=== PATIENT | female | born 1955 | race Two or more races ===

== ENCOUNTER 2021-03-11 10:14 | Inpatient (IN) | payer OTHER ==
[2021-03-11] MEDS ORDERED: SODIUM CHLORIDE 1,000 ML IV SCH (10:30)
[2021-03-11 10:50] VITALS: BMI 24.0
[2021-03-11] MEDS ORDERED: LORazepam 2 MG/ML SDV VIAL IVPUSH ONE (10:50)
[2021-03-11] MEDS ORDERED: LORazepam 2 MG/ML SDV VIAL ONE (10:50)
[2021-03-11 11:15] LABS: PH,URINE 5.5 (5.0-8.0); URINE APPEARANCE CLEAR; URINE BILIRUBIN NEGATIVE (NEGATIVE); URINE COLOR YELLOW; URINE GLUCOSE (UA) NEGATIVE (NEGATIVE); URINE KETONE NEGATIVE (NEGATIVE); URINE LEUK ESTERASE NEGATIVE (NEGATIVE); URINE NITRITE NEGATIVE (NEGATIVE); URINE PROTEIN NEGATIVE (NEGATIVE); URINE UROBILINOGEN 0.2 mg/dL (0.2-1.0)
[2021-03-11 11:47] LABS: BASO % 0.2 % (0-2.0); EOS % 0.4 % (0-4.5); HEMATOCRIT 37.9 % (32.4-45.2); HEMOGLOBIN 12.6 GM/dL (10.7-15.3); LYMPH % 9.8 % (8-40); MCH 27.8 pg (25.7-33.7); MCHC 33.1 g/dl (32.0-36.0); MEAN CELL VOLUME 84.1 fl (80-96); MEAN PLT VOLUME 8.7 fl (7.5-11.1); MONO % 7.4 % (3.8-10.2); NEUT % 82.2 % (42.8-82.8); PLATELET COUNT 236 K/MM3 (134-434); RBC 4.51 M/mm3 (3.60-5.2); RDW 13.7 % (11.6-15.6); WHITE BLOOD COUNT 12.4 K/mm3 (4.0-10.0)
[2021-03-11 11:53] LABS: INR 0.96 (0.83-1.09); PROTHROMBIN TIME (PATIENT) 11.8 SEC (9.7-13.0)
[2021-03-11 11:55] LABS: ACTIVATED PTT 24.7 SECONDS (25.2-36.5)
[2021-03-11 11:57] LABS: CHLORIDE 109 mmol/L (98-107); SODIUM 140 mmol/L (136-145)
[2021-03-11 12:00] LABS: ALBUMIN 3.2 g/dl (3.4-5.0); CALCIUM 8.8 mg/dL (8.5-10.1)
[2021-03-11 12:01] LABS: ANION GAP 8 MMOL/L (8-16); BLOOD UREA NITROGEN 12.9 mg/dL (7-18); CO2 23 mmol/L (21-32); GLUCOSE,RANDOM 87 mg/dL (74-106)
[2021-03-11 12:03] LABS: CHOLESTEROL 193 mg/dL (50-200); SGOT/AST 23 U/L (15-37); SGPT/ALT 22 U/L (13-61)
[2021-03-11 12:04] LABS: CREATININE 0.8 mg/dL (0.55-1.3); TRIGLYCERIDES 271 mg/dL (0-150)
[2021-03-11 12:05] LABS: BILIRUBIN,TOTAL 0.2 mg/dL (0.2-1); LDL CHOLESTEROL (ONLY SJRH) 118 mg/dL (5-100); TOT PROT 6.7 g/dl (6.4-8.2)
[2021-03-11 12:06] LABS: ALK PHOS 75 U/L (45-117); HDL CHOLESTEROL 39 mg/dL (40-60)
[2021-03-11 12:24] LABS: LACTIC ACID 2.1 mmol/L (0.4-2.0)
[2021-03-11] MEDS ORDERED: levETIRAcetam 500 MG/5 ML INJECTION VIAL IVPB ONE ×2 (14:35→15:06)
[2021-03-11] MEDS: D5-1/2NS+10 MEQ KCL - 10 MEQ/1,000 ML INFUS.BAG IV SCH (16:54)
[2021-03-11] MEDS ORDERED: LORazepam 2 MG/ML SDV VIAL IVPUSH PRN (17:07)
[2021-03-11] MEDS: levETIRAcetam 500 MG/5 ML INJECTION VIAL IVPB SCH (21:28)
[2021-03-11] MEDS: ATORVASTATIN CA 40 MG TABLET (FP) PO SCH (21:29)
[2021-03-11] MEDS ORDERED: levETIRAcetam 500 MG/5 ML INJECTION VIAL IVPB SCH (22:00)
[2021-03-12] MEDS: levETIRAcetam 500 MG/5 ML INJECTION VIAL IVPB SCH ×2 (09:18→21:19)
[2021-03-12] MEDS: ENOXAPARIN NA (PORCINE) 40 MG/0.4 ML DISP.SYRIN SQ SCH (09:19)
[2021-03-12 11:43] LABS: BASO % 0.5 % (0-2.0); EOS % 1.5 % (0-4.5); HEMATOCRIT 40.4 % (32.4-45.2); HEMOGLOBIN 13.5 GM/dL (10.7-15.3); LYMPH % 27.3 % (8-40); MCH 28.3 pg (25.7-33.7); MCHC 33.5 g/dl (32.0-36.0); MEAN CELL VOLUME 84.5 fl (80-96); MEAN PLT VOLUME 9.4 fl (7.5-11.1); MONO % 6.5 % (3.8-10.2); NEUT % 64.2 % (42.8-82.8); PLATELET COUNT 234 K/MM3 (134-434); RBC 4.78 M/mm3 (3.60-5.2); RDW 13.7 % (11.6-15.6); WHITE BLOOD COUNT 7.6 K/mm3 (4.0-10.0)
[2021-03-12 12:08] LABS: ALBUMIN 3.3 g/dl (3.4-5.0); BLOOD UREA NITROGEN 11.6 mg/dL (7-18); CALCIUM 9.4 mg/dL (8.5-10.1)
[2021-03-12 12:11] LABS: CREATININE 0.7 mg/dL (0.55-1.3)
[2021-03-12 12:12] LABS: PHOSPHOROUS 3.4 mg/dL (2.5-4.9)
[2021-03-12 12:13] LABS: BILIRUBIN,TOTAL 0.5 mg/dL (0.2-1); TOT PROT 7.1 g/dl (6.4-8.2)
[2021-03-12] MEDS: D5-1/2NS+10 MEQ KCL - 10 MEQ/1,000 ML INFUS.BAG IV SCH (20:00)
[2021-03-12] MEDS: ATORVASTATIN CA 40 MG TABLET (FP) PO SCH (21:28)
[2021-03-13 08:54] LABS: ALBUMIN 3.2 g/dl (3.4-5.0); BLOOD UREA NITROGEN 10.7 mg/dL (7-18); CALCIUM 9.1 mg/dL (8.5-10.1); MAGNESIUM 2.4 mg/dL (1.8-2.4)
[2021-03-13 08:58] LABS: CREATININE 0.7 mg/dL (0.55-1.3); PHOSPHOROUS 3.1 mg/dL (2.5-4.9)
[2021-03-13 08:59] LABS: BILIRUBIN,TOTAL 0.6 mg/dL (0.2-1)
[2021-03-13] MEDS: levETIRAcetam 500 MG/5 ML INJECTION VIAL IVPB SCH ×2 (09:55→21:30)
[2021-03-13] MEDS: ENOXAPARIN NA (PORCINE) 40 MG/0.4 ML DISP.SYRIN SQ SCH (10:14)
[2021-03-13] MEDS: D5-1/2NS+10 MEQ KCL - 10 MEQ/1,000 ML INFUS.BAG IV SCH (21:30)
[2021-03-13] MEDS: ATORVASTATIN CA 40 MG TABLET (FP) PO SCH (21:30)
[2021-03-14] MEDS: D5-1/2NS+10 MEQ KCL - 10 MEQ/1,000 ML INFUS.BAG IV SCH (06:54)
[2021-03-14 08:18] LABS: BASO % 0.5 % (0-2.0); EOS % 2.6 % (0-4.5); HEMATOCRIT 39.1 % (32.4-45.2); LYMPH % 26.9 % (8-40); MCH 28.1 pg (25.7-33.7); MCHC 33.2 g/dl (32.0-36.0); MEAN CELL VOLUME 84.6 fl (80-96); MONO % 10.2 % (3.8-10.2); NEUT % 59.8 % (42.8-82.8); PLATELET COUNT 232 K/MM3 (134-434); RBC 4.62 M/mm3 (3.60-5.2); RDW 13.4 % (11.6-15.6); WHITE BLOOD COUNT 9.3 K/mm3 (4.0-10.0)
[2021-03-14 08:44] LABS: ALBUMIN 3.2 g/dl (3.4-5.0)
[2021-03-14 08:45] LABS: BLOOD UREA NITROGEN 11.4 mg/dL (7-18)
[2021-03-14 08:46] LABS: CALCIUM 9.1 mg/dL (8.5-10.1)
[2021-03-14 08:47] LABS: CREATININE 0.7 mg/dL (0.55-1.3)
[2021-03-14 08:49] LABS: BILIRUBIN,TOTAL 0.6 mg/dL (0.2-1); TOT PROT 7.1 g/dl (6.4-8.2)
[2021-03-14] MEDS: levETIRAcetam 500 MG/5 ML INJECTION VIAL IVPB SCH ×2 (10:35→21:09)
[2021-03-14] MEDS: ENOXAPARIN NA (PORCINE) 40 MG/0.4 ML DISP.SYRIN SQ SCH (10:35)
[2021-03-14] MEDS: ATORVASTATIN CA 40 MG TABLET (FP) PO SCH (21:09)
[2021-03-15] MEDS: D5-1/2NS+10 MEQ KCL - 10 MEQ/1,000 ML INFUS.BAG IV SCH ×2 (06:34→21:36)
[2021-03-15] MEDS ORDERED: PNEUMOC 13-VAL CONJ-DIP CRM/PF 0.5 ML DISP.SYRIN IM ONE (08:15)
[2021-03-15] MEDS: levETIRAcetam 500 MG/5 ML INJECTION VIAL IVPB SCH ×2 (09:19→21:37)
[2021-03-15] MEDS: ENOXAPARIN NA (PORCINE) 40 MG/0.4 ML DISP.SYRIN SQ SCH (09:19)
[2021-03-15 12:22] LABS: BASO % 1.1 % (0-2.0); EOS % 0.6 % (0-4.5); HEMATOCRIT 41.9 % (32.4-45.2); LYMPH % 18.1 % (8-40); MCH 28.3 pg (25.7-33.7); MCHC 33.3 g/dl (32.0-36.0); MEAN PLT VOLUME 9.3 fl (7.5-11.1); MONO % 10.1 % (3.8-10.2); NEUT % 70.1 % (42.8-82.8); PLATELET COUNT 258 K/MM3 (134-434); RBC 4.94 M/mm3 (3.60-5.2); RDW 13.2 % (11.6-15.6); WHITE BLOOD COUNT 8.5 K/mm3 (4.0-10.0)
[2021-03-15 12:48] LABS: CALCIUM 9.9 mg/dL (8.5-10.1)
[2021-03-15 12:49] LABS: ALBUMIN 3.6 g/dl (3.4-5.0); BLOOD UREA NITROGEN 9.6 mg/dL (7-18)
[2021-03-15 12:52] LABS: CREATININE 0.8 mg/dL (0.55-1.3)
[2021-03-15 12:54] LABS: BILIRUBIN,TOTAL 0.5 mg/dL (0.2-1); TOT PROT 7.9 g/dl (6.4-8.2)
[2021-03-15] MEDS: ATORVASTATIN CA 40 MG TABLET (FP) PO SCH (21:37)
[2021-03-16] MEDS: D5-1/2NS+10 MEQ KCL - 10 MEQ/1,000 ML INFUS.BAG IV SCH (06:19)
[2021-03-16] MEDS: levETIRAcetam 500 MG/5 ML INJECTION VIAL IVPB SCH (09:24)
[2021-03-16] MEDS: ENOXAPARIN NA (PORCINE) 40 MG/0.4 ML DISP.SYRIN SQ SCH (09:25)
[2021-03-16] MEDS ORDERED: levETIRAcetam 500 MG TABLET (FP) PO SCH (10:00)
[2021-03-16 14:35] VITALS: BP 108/65; PULSE 62; TEMP 98.2
== END 2021-03-16 16:25 | disposition home or self-care (01) | DRG 100 ==
LOC: JER 10:14 → JERBED 13:09 → J4W 17:43
PROVIDERS: ADMIT Internal Medicine
DX: G40.909 Epilepsy, unspecified, not intractable, without status epilepticus (principal); R53.2 Functional quadriplegia; E46 Unspecified protein-calorie malnutrition; R47.01 Aphasia; I10 Essential (primary) hypertension; E78.5 Hyperlipidemia, unspecified; Z68.24 Body mass index [BMI] 24.0-24.9, adult; G30.9 Alzheimer's disease, unspecified; F02.80 Dementia in other diseases classified elsewhere, unspecified severity, without behavioral disturbance, psychotic disturbance, mood disturbance, and anxiety; R55 Syncope and collapse
CPT/HCPCS: 36415; 70450-TC; 70496-TC; 70498-TC; 70551-TC; 71045-TC-FY; 72125-TC; 80053; 80061; 81003; 82550; 82553; 82607; 82746; 82962; 83036; 83605; 83721; 83735; 84100; 84443; 84484; 85025; 85610; 85730; 86780; 86850; 86900; 86901; 87804; 90670; 93005; 93010; 93306-TC; 95816; 99285-25; C9803; U0003; U0005